=== PATIENT | female | born 1980 | race Caucasian/White ===

== ENCOUNTER 2020-02-20 08:19 | Day surgery (SDC) | payer OTHER ==
[2020-02-20] VITALS (9 sets, daily range): BP systolic 119–162; BP diastolic 55–88
[~2020-02-20] VITALS: Ht 170.2 cm; Wt 87.1 kg
[2020-02-20 08:56] LABS: BASOPHILS % (AUTO) 0.2 % (0-1); EOSINOPHILS % (AUTO) 0.2 % (0-6); HEMOGLOBIN 15.1 g/dl (12.0-16.0); LYMPHOCYTES # (AUTO) 1.8 X10'3 (1.1-4.8); LYMPHOCYTES % (AUTO) 11.4 % (21-51); MEAN CORPUSCULAR HGB CONC 34.3 g/dL (33.0-36.5); MEAN CORPUSCULAR VOLUME 93.2 FL (78-98); MONOCYTES % (AUTO) 6.3 % (2-12); NEUTROPHILS # (AUTO) 13.2 X10'3 (1.8-7.7); NEUTROPHILS % (AUTO) 81.9 % (42-75); PLATELET COUNT 288 X10'3 (140-440); RED BLOOD COUNT 4.72 X10'6 (4.20-5.60); RED CELL DISTRIBUTION WIDTH 12.6 % (11.5-14.5); WHITE BLOOD COUNT 16.2 X10'3 (4.5-11.0)
[2020-02-20 09:11] LABS: ALANINE AMINOTRANSFERASE 19 U/L (12-78); ALBUMIN 3.9 G/DL (3.4-5.0); ALBUMIN/GLOBULIN RATIO 0.8 (1.1-1.5); ALKALINE PHOSPHATASE 72 IU/L (46-116); ANION GAP 11 (8-16); ASPARTATE AMINO TRANSFERASE 11 U/L (10-37); BILIRUBIN,TOTAL 0.7 MG/DL (0.1-1.0); BLOOD UREA NITROGEN 8 MG/DL (7-18); BUN/CREATININE RATIO 9.4 (6.6-38.0); CALCIUM 9.5 MG/DL (8.5-10.1); CHLORIDE 102 MMOL/L (99-107); CREATININE 0.85 MG/DL (0.40-0.90); GLUCOSE 107 MG/DL (70-104); POTASSIUM 3.6 MMOL/L (3.5-5.1); SODIUM 137 MMOL/L (135-145); TOTAL CARBON DIOXIDE 24.2 MMOL/L (24-32); TOTAL PROTEIN 8.7 G/DL (6.4-8.2); eGFR 74 ML/MIN
[2020-02-20 09:18] LABS: BETA HCG,QUANTITATIVE < 1.0 mIU/ml; LIPASE < 50 U/L (73-393)
[2020-02-20] MEDS ORDERED: normal saline 1000ML IV soln IVB ONE (11:10)
[2020-02-20] MEDS ORDERED: morphine 4 MG/ML inj SYRINge IV PRN ×2 (11:10→15:10)
[2020-02-20] MEDS ORDERED: ondansetron/PF 4mg/2ml inj IV ONE (11:10)
[2020-02-20 11:35] LABS: URINE HCG NEGATIVE (NEG)
[2020-02-20 11:39] LABS: CLARITY,URINE SLIGHTLY CLOUDY (Clear); COLOR,URINE YELLOW (Yellow); GLUCOSE, URINE NEGATIVE (Neg); KETONES,URINE 15 mg/dl (Neg); LEUKOCYTE ESTERASE ,URINE NEGATIVE (Neg); NITRITES, URINE NEGATIVE (Neg); OCCULT BLOOD,URINE SMALL (Neg); PROTEIN,URINE NEGATIVE (Neg)
[2020-02-20 11:58] LABS: UA COLLECTION TYPE NON-SPECIFIED
[2020-02-20 12:07] LABS: SQUAMOUS EPITHELIAL CELL,UR MANY /LPF (FEW)
[2020-02-20 12:08] LABS: BACTERIA,URINE FEW /HPF (Neg); RBC,URINE 0-2 /HPF (0-2); WBC,URINE 0-4 /HPF (0-4); YEAST FEW /HPF (NEGATIVE)
[2020-02-20] MEDS ORDERED: piperacillin/tazo 3.375gm/50ml 50 ML IV ONE (12:30)
[2020-02-20] MEDS ORDERED: NO HOME MEDS (12:45)
--- NOTE | 2020-02-20 12:59 | NUR ---
please keep pts sanjana [phone], and mom em truner [phone]
[2020-02-20] MEDS ORDERED: magnesium 2GM in 50ml NS 50 ML IV PRN (13:40)
[2020-02-20] MEDS ORDERED: mag hydrox/Alum hydrox/simeth 30ml oral suspension PO PRN (13:40)
[2020-02-20] MEDS ORDERED: ondansetron/PF 4mg/2ml inj IV PRN ×2 (13:40→15:10)
[2020-02-20] MEDS ORDERED: magnesium 4gm in 100ml NS 100 ML IV PRN (13:40)
[2020-02-20] MEDS ORDERED: potassium Cl 20 mEq SR tablet PO PRN ×2 (13:40)
[2020-02-20] MEDS ORDERED: bisacodyl 10mg suppository rectal RC PRN (13:40)
[2020-02-20] MEDS ORDERED: potassium CL 10mEq/100ml bag 100 ML IV PRN ×2 (13:40)
[2020-02-20] MEDS ORDERED: metoclopramide 5 mg/ml inj IV PRN (13:40)
[2020-02-20] MEDS ORDERED: acetaminophen 325mg tablet PO PRN ×2 (13:40)
[2020-02-20] MEDS ORDERED: HYDROcodone/acetaminophen 5mg/325mg tablet PO PRN (13:40)
[2020-02-20] MEDS ORDERED: magnesium Cl slow-release 64mg tablet PO PRN (13:40)
[2020-02-20] MEDS ORDERED: HYDROcodone/acetaminophen 10/325mg tab PO PRN (13:40)
[2020-02-20] MEDS ORDERED: magnesium hydroxide 30ml (MOM) UD suspension PO PRN (13:40)
[2020-02-20] MEDS ORDERED: normal saline 1000ml 1,000 ML IV SCH (13:40)
[2020-02-20] MEDS ORDERED: HYDROmorphone inj. 0.5 MG/0.5 ML DISP.SYRIN IV PRN (13:40)
[2020-02-20 13:50] LABS: PARTIAL THROMBOPLASTIN TIME 35 SECONDS (22-32)
[2020-02-20] MEDS ORDERED: BUPIVAcaine/PF 2.5 mg/ml (0.25%) 30ml vial ONE (14:23)
[2020-02-20] MEDS ORDERED: midazolam 2 mg/2 ml injection ONE (14:45)
[2020-02-20] MEDS ORDERED: fentaNYL/PF 50MCG/1 ML 2ML syringe ONE ×2 (14:45→15:37)
[2020-02-20] MEDS ORDERED: propofol inj 20 ML IV ONE (14:46)
[2020-02-20] MEDS ORDERED: dexamethasone sod phosphate 4mg/ml inj. ONE (14:46)
[2020-02-20] MEDS ORDERED: rocuronium 10mg/ml inj IV ONE (14:46)
[2020-02-20] MEDS ORDERED: LIDOcaine 2% (20mg/ml) 5ml vial ONE (14:46)
[2020-02-20] MEDS ORDERED: morphine 2 MG/ML inj. syringe IV PRN (15:10)
[2020-02-20] MEDS ORDERED: fentaNYL/PF 50MCG/1 ML 2ML syringe IV PRN ×2 (15:10)
[2020-02-20] MEDS ORDERED: labetalol 20mg/4ml (5mg/ml) syringe IV PRN (15:10)
[2020-02-20] MEDS ORDERED: ringers solution, lacted 1,000 ML IV SCH (15:10)
[2020-02-20] MEDS ORDERED: hydrALAZINE 20mg/ml inj. IV PRN (15:10)
[2020-02-20] MEDS ORDERED: sevoflurane 250ml liquid IH ONE (15:23)
[2020-02-20] MEDS ORDERED: ondansetron/PF 4mg/2ml inj ONE (15:35)
[2020-02-20] MEDS ORDERED: neostigmine methylsulfate 1 MG/ML 10ml vial ONE (15:46)
[2020-02-20] MEDS ORDERED: glycopyrrolate 0.2mg/ml inj ONE (15:47)
[2020-02-20] MEDS ORDERED: piperacillin/tazo 3.375gm/50ml 50 ML IV SCH (16:00)
--- NOTE | 2020-02-20 16:26 | NUR ---
Received from OR via [facility] , accompanied by Anesthesiologist FAITH and report given by Anesthesiolgist. PATIENT WITH 20G PIV IN LEFT UE RUNNING LR AT 100. DENIES PAIN. 10L MASK ON WITH 98% SATRUATIONS. VSS. 3 ABDOMINAL LAP SITES PRESENT. Addendum: 02/20/20 at 1637 by George Henning RN, RN Amended: Links added.
--- NOTE | 2020-02-20 17:46 | NUR ---
I HAVE REVIEWED D/C INSTRUCTIONS WITH PATIENT AND FAMILY AND THEY HAVE VERBALIZED UNDERSTANDING. PATIENT D/C HOME WITH ALL BELONGINGS AND FAMILY GAVE TRANSPORT HOME.DRESSINGS CDI. PAIN AT A TOLERABLE LEVEL. VSS. DRESSING WITH ASSIST AND SPOUSE COMING TO TAKE PATIENT HOME. Addendum: 02/20/20 at 1751 by George Henning RN, RN Amended: Links added.
[2020-02-20] MEDS ORDERED: K and/or MAG REPLACEMENT MC SCH (20:00)
== END 2020-02-20 17:51 | disposition home or self-care (01) ==
LOC: ER 08:19 → SSTAY O 10:00 → ED HOLD 13:36 → UNDOADMIN 13:36 → UNDODISIN 17:45 → ER 17:46 → SSTAY O 17:51
PROVIDERS: ATTEND Emergency Medicine
DX: K35.80 Unspecified acute appendicitis (principal); D72.829 Elevated white blood cell count, unspecified; E66.3 Overweight; Z68.30 Body mass index [BMI] 30.0-30.9, adult; Z79.899 Other long term (current) drug therapy; Z79.01 Long term (current) use of anticoagulants; Z20.828 Contact with and (suspected) exposure to other viral communicable diseases; R10.2 Pelvic and perineal pain
CPT/HCPCS: 36415; 44970; 74176; 80053; 81001; 81025; 83690; 84702; 85025; 85610; 85730; 86885; 86900; 86901; 87635; 96365; 96375; 99285; J1100; J2001; J2250; J2270; J2405; J2543; J2704; J2710; J3010; J3490; J7030; J7120; A4215; A4618; A7000; G0378